=== PATIENT | male | born 1955 | race Caucasian/White ===

== ENCOUNTER 2017-03-27 05:53 | Day surgery (SDC) | payer OTHER, MEDICARE ==
[2017-03-27] MEDS ORDERED: SOD CHLORIDE 0.9% 1,000 ML IV (06:00)
[2017-03-27] MEDS: DICLOFENAC 0.1% 2.5 ML OPH LEFT EYE (06:31)
[2017-03-27] MEDS: MOXIFLOXACIN 0.5% 3 ML OPH LEFT EYE (06:31)
[2017-03-27] MEDS: CYCLOPENTOLATE/PHENYLEPH 2 ML OPH LEFT EYE (06:33)
[2017-03-27] MEDS ORDERED: CARBACHOL 0.01% 1.5 ML OPH INJ (06:35)
[2017-03-27] MEDS ORDERED: DEXAMETHASONE 4 MG/ML 1 ML INJ (06:35)
[2017-03-27] MEDS ORDERED: EPINEPHrine 1 MG INJ (06:35)
[2017-03-27] MEDS ORDERED: GENTAMICIN 80 MG INJ (06:35)
[2017-03-27] MEDS ORDERED: LIDOCAINE 4% (MPF) 5 ML INJ (06:35)
[2017-03-27] MEDS: TROPICAMIDE 1% 3 ML OPH LEFT EYE ×2 (06:59→07:02)
[2017-03-27] MEDS: GENTAMICIN 80 MG INJ INJ (07:00)
[2017-03-27] MEDS: DEXAMETHASONE 4 MG/ML 1 ML INJ INJ (07:00)
[2017-03-27] MEDS: CARBACHOL 0.01% 1.5 ML OPH INJ IO (07:00)
[2017-03-27] MEDS ORDERED: MIDAZOLAM 1 MG/ML 2 ML INJ (07:37)
[2017-03-27] MEDS ORDERED: PROPOFOL 20 ML (07:37)
[2017-03-27] MEDS ORDERED: ONDANSETRON 4 MG INJ (07:52)
[2017-03-27] MEDS ORDERED: METOCLOPRAMIDE 10 MG INJ (07:52)
== END 2017-03-27 09:50 | disposition home or self-care (01) ==
LOC: SDS 05:53
DX: H25.12 Age-related nuclear cataract, left eye (principal); E11.9 Type 2 diabetes mellitus without complications; I10 Essential (primary) hypertension; I49.9 Cardiac arrhythmia, unspecified; Z79.4 Long term (current) use of insulin; Z95.0 Presence of cardiac pacemaker; Z79.84 Long term (current) use of oral hypoglycemic drugs; Z79.82 Long term (current) use of aspirin; Z88.0 Allergy status to penicillin
CPT/HCPCS: 66984; 82962